=== PATIENT | female | born 1980 | race Caucasian/White ===

== ENCOUNTER 2018-01-03 21:55 | Emergency (ER) | payer OTHER ==
[2018-01-03] MEDS ORDERED: TDAP ADULT 0.5 ML INJ (BOOSTRIX) IM ONE (22:36)
--- NOTE | 2018-01-03 22:42 | EDPHY ---
General Time Seen by Provider: 01/03/18 22:40 Narrative: CHIEF COMPLAINT: Knee laceration HISTORY OF PRESENT ILLNESS: Patient presents with complaints of right knee laceration and abrasions to both knees. This happened while playing softball this evening around 8:00 p.m.. She states "someone tagged me out really hard," and sustained the above injuries. No head injury. No significant pain. She is fully ambulatory continued to play. She has no numbness, tingling or weakness. No difficulty walking. She has only a concern for the laceration on the right knee that she thinks need to be sewn. Tetanus is in question. No other associated complaints or modifying factors. TIME OF INJURY: 8:00 p.m. Tonight TETANUS STATUS: Uncertain. Updated here MEDICAL/SURGICAL/SOCIAL HISTORY: Uncomplicated. Orthopedic injuries and surgeries. Nonsmoker. Lives independently. REVIEW OF SYSTEMS: Ten systems reviewed and are negative unless otherwise noted in the HPI EXAMINATION General Appearance: Alert, no distress Head: normocephalic, atraumatic Cardiovascular: Good signs of perfusion to the lower extremities bilaterally. Neurological: A&O, sensory symmetric, strength symmetric Skin: Warm and dry. Two areas of abrasion, left anterior knee right anterior knee. There is a small laceration on the right lateral knee, 3 cm. No foreign body. No pulsatile bleeding. Extremities: Minimal tenderness of the right knee abrasion laceration left knee abrasion. No bony tenderness. Full range of motion lower extremities without difficulty. DIFFERENTIAL DIAGNOSES: Including but not limited to laceration, abrasion, patellar fracture, sprain, strain MDM: 10:40 p.m. Laceration to the right lateral knee with abrasion to the right knee and to the left knee. No bony tenderness. Fully ambulatory without difficulty. No signs of foreign body. No signs of deep tissue structures. Tetanus is being updated. I have anesthetize the wound. This will require suture repair. 11:00 p.m. Right knee laceration that has been irrigated and closed without difficulty. This does approximate the joint but did not puncture into the joint. No foreign body. Neuro intact distally. Tolerated well. Wound care discussed. ED precautions discussed. Return here in 10-14 days for suture removal. She is comfortable this plan and discharged home stable condition. Tetanus was updated here. PROCEDURE: Laceration repair Consent: Verbal Location: Right lateral knee Length of repair: 3 cm Complexity: Complex Layer involvement: Single Anesthesia: Local. 1% lidocaine with epinephrine, 5 mL Irrigation: Extensive Debridement: None Procedure description: Following good anesthesia, the wound was copiously irrigated. Wound bed was explored with a sterile glove, and there is no foreign body noted. No injury to the deep structures. Wound borders were approximated well with good hemostasis. Tolerated well without complication. Suture/Staple material: 4-0 Prolene, 4 simple ruptured sutures Wound care: Routine as discussed Suture/Staple removal: 10-14 Days SUPERVISION: This patient was independently evaluated without direct involvement of or examination by the attending physician. ED Precautions: Worsening pain. Erythema, edema, cyanosis, pallor, paresthesia or anesthesia. - History Smoking Status: Never smoked - Objective Vital Signs: Initial Vital Signs Temperature (C) 98.1 F 01/03/18 21:57 Heart Rate 93 01/03/18 21:57 Respiratory Rate 18 01/03/18 21:57 Blood Pressure 137/92 H 01/03/18 21:57 O2 Sat (%) 97 01/03/18 21:57 O2 Delivery Mode Room Air Allergies/Adverse Reactions: No Known Allergies Allergy (Unverified 01/03/18 21:59) Home Medications: Medication Instructions Recorded Cephalexin [Keflex (*)] 500 mg PO QID #40 cap 01/03/18 Medications Given: Discontinued Medications Diphtheria/Tetanus/Acell Pertussis (Boostrix) 0.5 ml IM .ONCE ONE Stop: 01/03/18 22:37 Last Admin: 01/03/18 22:40 Dose: 0.5 ml Departure - Departure Disposition: Home, Routine, Self-Care Clinical Impression: Abrasion, multiple sites Laceration of right knee Qualifiers: Encounter type: initial encounter Qualified Code(s): S81.011A - Laceration without foreign body, right knee, initial encounter Condition: Good Instructions: Care For Your Stitches (ED), Laceration (ED), Cephalexin (By mouth) Additional Instructions: 1. Thin layer of bacitracin once daily for the next 2 days 2. Keep the wound covered while showering for the next 3 days 3. Daily wound care as discussed 4. Return here for suture removal in 10-14 days 5. Return here for signs of infection as discussed including warmth, redness, fever, drainage from the site 6. return here for increasing pain surrounding the laceration 7. Do not submerge the wound in any water, hot tub, swimming pool until sutures removed Referrals: Sammie Murray MD [[facility] [place] Primary Care Provider] - As per Instructions Physician,Emergency DeptMD [Medical Doctor] - As per Instructions (10-14 days for suture removal) Prescriptions: Cephalexin [Keflex (*)] 500 mg PO QID #40 cap
[2018-01-03] MEDS ORDERED: CEPHALEXIN 500MG PREPACK#4 BTL TAKEHOME ONE (23:05)
[2018-01-03 23:19] VITALS: BP 123/88
== END 2018-01-03 23:19 | disposition home or self-care (01) ==
PROC: 0HQKXZZ Repair Right Lower Leg Skin, External Approach (ICD-10-PCS; principal; 2018-01-03)
DX: S81.011A Laceration without foreign body, right knee, initial encounter (principal); W51.XXXA Accidental striking against or bumped into by another person, initial encounter; Y93.64 Activity, baseball